=== PATIENT | male | born 1975 | race Caucasian/White ===

== ENCOUNTER 2017-09-27 06:32 | Day surgery (SDC) | payer OTHER ==
[~2017-09-27] VITALS: Ht 185.4 cm; Wt 117.0 kg
[~2017-09-27 06:32] MED LIST: AMOX500 PO; AMOX50SU PO; ASPI325 PO; ATOR40TA PO; CLOP75; CODACEE120 PO; CYCL10 PO; FAMO40 PO; GABA300 PO; HYDACE5 PO; IBUP800 PO; LANS15EC PO; LANS30EC PO; METO50ER PO; Nitrostat0.4 MG SL; Norco 5-325 Ta1 EACH PO; Omeprazole20 M1 PO; Percocet 7.5-31 EACH PO; Ranitidine HCl150 M1 PO; SILSUL1TC TOP; Ultram50 MG PO; Zantac150 MG PO
== END 2017-09-27 10:50 | disposition home or self-care (01) ==
LOC: MHTC 06:32
PROC: 4A023N7 Measurement of Cardiac Sampling and Pressure, Left Heart, Percutaneous Approach (ICD-10-PCS; principal; 2017-09-27)
PROC: B211YZZ Fluoroscopy of Multiple Coronary Arteries using Other Contrast (ICD-10-PCS; principal; 2017-09-27)
DX: R07.9 Chest pain, unspecified (principal); R94.39 Abnormal result of other cardiovascular function study; E78.5 Hyperlipidemia, unspecified; E66.01 Morbid (severe) obesity due to excess calories
CPT/HCPCS: 93458; 99152; C1769; C1894; J0690; J1644; J2250; J3010; J7030; Q9967

== ENCOUNTER → 2018-07-13 | Outpatient (CLI) | payer OTHER | END | disposition home or self-care (01) | LOC: LAB SHORT 17:34 → LAB EV 17:34 | DX: E11.42 Type 2 diabetes mellitus with diabetic polyneuropathy (principal); R39.15 Urgency of urination | CPT/HCPCS: 82043; 87086 ==

== ENCOUNTER → 2018-10-02 | Outpatient (CLI) | payer OTHER | END | disposition home or self-care (01) | LOC: LAB SHORT 16:19 → LAB EV 16:19 | DX: B99.9 Unspecified infectious disease (principal) | CPT/HCPCS: 87070; 87205 ==

== ENCOUNTER → 2019-08-24 | Outpatient (CLI) | payer OTHER ==
[2019-08-24 15:12] LABS: BASOPHILS ABSOLUTE AUTO 0.07 K/mm3 (0.00-0.23); BASOPHILS PERCENT AUTO 1 % (0-2); EOSINOPHILS ABSOLUTE AUTO 0.13 K/mm3 (0.00-0.68); EOSINOPHILS PERCENT AUTO 2 % (0-6); Hematocrit 46.7 % (37.0-53.0); Hemoglobin 17.4 g/dL (13.5-17.5); IMMATURE GRAN ABSOLUTE AUTO 0.07 K/mm3 (0.00-0.10); IMMATURE GRAN PERCENT AUTO 1 % (0-1); LYMPHOCYTES ABSOLUTE AUTO 2.32 K/mm3 (0.84-5.20); LYMPHOCYTES PERCENT AUTO 31 % (21-46); MONOCYTES ABSOLUTE AUTO 0.48 K/mm3 (0.16-1.47); MONOCYTES PERCENT AUTO 6 % (4-13); Mean Corpuscular HGB 31.3 pg (26.0-34.0); Mean Corpuscular HGB Conc 37.3 g/dL (31.5-36.5); Mean Corpuscular Volume 84 fL (80-100); Mean Platelet Volume 10.3 fL (9.1-12.4); NEUTROPHILS ABSOLUTE AUTO 4.53 K/mm3 (1.96-9.15); NEUTROPHILS PERCENT AUTO 60 % (41-73); Platelet Count 231 K/mm3 (150-400); RDW Coefficient Variation 12.6 % (11.7-14.2); RDW Standard Deviation 38.1 fL (35.1-46.3); Red Blood Cell Count 5.56 M/mm3 (4.30-5.90)
[2019-08-24 15:24] LABS: Anion Gap 13 mmol/L (6-16); Blood Urea Nitrogen 14 mg/dL (8-24); Bun/Creatinine Ratio 13.5 (12.0-20.0); CO2, Blood 23 mmol/L (21-32); Calcium, Blood 8.7 mg/dL (8.5-10.1); Chloride, Blood 104 mmol/L (98-108); Creatinine, Blood 1.04 mg/dL (0.60-1.20); Glomerular Filtration Rate >60 (60-); Glucose, Blood 202 mg/dL (70-99); Potassium, Blood 4.1 mmol/L (3.5-5.5); Sodium, Blood 140 mmol/L (136-145); Troponin I <0.017 ng/mL (0.000-0.040)
== END ==
LOC: LAB SHORT 15:06 → LAB EV 15:06
PROVIDERS: Family Medicine
DX: R00.2 Palpitations (principal)
CPT/HCPCS: 80048; 84484; 85025

== ENCOUNTER → 2020-01-08 | Outpatient (CLI) | payer OTHER | LOC: LAB SHORT 13:33 → PLD 13:33 | DX: L82.1 Other seborrheic keratosis (principal) | CPT/HCPCS: 88305 ==

== ENCOUNTER → 2021-01-06 | Outpatient (CLI) | payer OTHER ==
[2021-01-06 15:24] LABS: BASOPHILS ABSOLUTE AUTO 0.05 K/mm3 (0.00-0.23); BASOPHILS PERCENT AUTO 0 % (0-2); EOSINOPHILS ABSOLUTE AUTO 0.01 K/mm3 (0.00-0.68); EOSINOPHILS PERCENT AUTO 0 % (0-6); Hematocrit 47.5 % (37.0-53.0); Hemoglobin 17.5 g/dL (13.5-17.5); IMMATURE GRAN ABSOLUTE AUTO 0.07 K/mm3 (0.00-0.10); IMMATURE GRAN PERCENT AUTO 1 % (0-1); LYMPHOCYTES ABSOLUTE AUTO 1.03 K/mm3 (0.84-5.20); LYMPHOCYTES PERCENT AUTO 9 % (21-46); MONOCYTES ABSOLUTE AUTO 0.74 K/mm3 (0.16-1.47); MONOCYTES PERCENT AUTO 7 % (4-13); Mean Corpuscular HGB 30.9 pg (26.0-34.0); Mean Corpuscular HGB Conc 36.8 g/dL (31.5-36.5); Mean Corpuscular Volume 84 fL (80-100); Mean Platelet Volume 10.1 fL (9.1-12.4); NEUTROPHILS ABSOLUTE AUTO 9.36 K/mm3 (1.96-9.15); NEUTROPHILS PERCENT AUTO 83 % (41-73); Platelet Count 251 K/mm3 (150-400); RDW Coefficient Variation 12.6 % (11.7-14.2); Red Blood Cell Count 5.66 M/mm3 (4.30-5.90); White Blood Cell Count 11.26 K/mm3 (4.00-11.30)
[2021-01-06 16:16] LABS: Albumin, Blood 4.2 g/dL (3.4-5.0); Albumin/Globulin Ratio 1.2 (0.8-1.8); Calcium, Blood 9.2 mg/dL (8.5-10.1); Creatinine, Blood 1.3 mg/dL (0.60-1.20); Globulin, Blood 3.5 g/dL (2.2-4.0); Potassium, Blood 3.9 mmol/L (3.5-5.5); Total Protein, Blood 7.7 g/dL (6.4-8.2)
== END | disposition home or self-care (01) ==
LOC: LAB SHORT 15:11 → LAB 15:11
PROVIDERS: Physician Assistant
DX: R50.9 Fever, unspecified (principal)
CPT/HCPCS: 80053; 83690; 85025

== ENCOUNTER 2023-01-19 16:43 | Emergency (ER) | payer OTHER ==
[~2023-01-19] VITALS: Ht 182.9 cm; Wt 111.1 kg
[~2023-01-19 16:43] MED LIST changes: -ATENOLOL25 MG PO; -GABAPENTIN600 MG PO; -LIPITOR80 MG PO; -Methocarbamol750 MG PO; -OMEP20ER PO; -STEGLATRO15 MG PO
[2023-01-19] MEDS ORDERED: ATENOLOL25 MG PO (17:26)
[2023-01-19] MEDS ORDERED: GABAPENTIN600 MG PO (17:26)
[2023-01-19] MEDS ORDERED: Methocarbamol750 MG PO (17:26)
[2023-01-19] MEDS ORDERED: STEGLATRO15 MG PO (17:27)
[2023-01-19] MEDS ORDERED: LIPITOR80 MG PO (17:27)
[2023-01-19] MEDS ORDERED: OMEP20ER PO (17:27)
[2023-01-19 17:51] LABS: Albumin, Blood 4.4 g/dL (3.4-5.0); Albumin/Globulin Ratio 1.3 (0.8-1.8); Bilirubin, Total 0.9 mg/dL (0.1-1.0); Bun/Creatinine Ratio 15.7 (12.0-20.0); Calcium, Blood 9.1 mg/dL (8.5-10.1); Creatinine, Blood 0.89 mg/dL (0.60-1.20); Globulin, Blood 3.3 g/dL (2.2-4.0); Potassium, Blood 3.7 mmol/L (3.5-5.5); Total Protein, Blood 7.7 g/dL (6.4-8.2)
[2023-01-19 18:26] LABS: BASOPHILS ABSOLUTE AUTO 0.06 K/mm3 (0.00-0.23); BASOPHILS PERCENT AUTO 1 % (0-2); EOSINOPHILS ABSOLUTE AUTO 0.14 K/mm3 (0.00-0.68); EOSINOPHILS PERCENT AUTO 2 % (0-6); Hematocrit 46.4 % (37.0-53.0); Hemoglobin 17.1 g/dL (13.5-17.5); IMMATURE GRAN ABSOLUTE AUTO 0.06 K/mm3 (0.00-0.10); IMMATURE GRAN PERCENT AUTO 1 % (0-1); LYMPHOCYTES ABSOLUTE AUTO 2.21 K/mm3 (0.84-5.20); LYMPHOCYTES PERCENT AUTO 26 % (21-46); MONOCYTES ABSOLUTE AUTO 0.51 K/mm3 (0.16-1.47); MONOCYTES PERCENT AUTO 6 % (4-13); Mean Corpuscular HGB 30.6 pg (26.0-34.0); Mean Corpuscular HGB Conc 36.9 g/dL (31.5-36.5); Mean Corpuscular Volume 83 fL (80-100); Mean Platelet Volume 10.7 fL (9.1-12.4); NEUTROPHILS ABSOLUTE AUTO 5.44 K/mm3 (1.96-9.15); NEUTROPHILS PERCENT AUTO 65 % (41-73); NRBC ABSOLUTE 0.02 K/mm3 (0.00-0.02); NRBC Auto 0.2 /100 WBC (0.0-0.2); Platelet Count 215 K/mm3 (150-400); RDW Coefficient Variation 12.2 % (11.7-14.2); RDW Standard Deviation 36.6 fL (35.1-46.3); Red Blood Cell Count 5.58 M/mm3 (4.30-5.90); White Blood Cell Count 8.42 K/mm3 (4.00-11.30)
[2023-01-19 19:30] VITALS: BP 138/88
== END 2023-01-19 20:19 | disposition home or self-care (01) ==
LOC: ER 16:43
PROVIDERS: Physician Assistant
DX: R07.89 Other chest pain (principal); I50.30 Unspecified diastolic (congestive) heart failure; I45.10 Unspecified right bundle-branch block; F17.220 Nicotine dependence, chewing tobacco, uncomplicated; Z79.899 Other long term (current) drug therapy
CPT/HCPCS: 71046; 80053; 83690; 84484; 85025; 85379; 93005; 93010; 99285-25

== ENCOUNTER → 2023-01-19 | Outpatient (CLI) | payer OTHER ==
[~2023-01-19] MED LIST changes: +ATENOLOL25 MG PO; +GABAPENTIN600 MG PO; +LIPITOR80 MG PO; +Methocarbamol750 MG PO; +OMEP20ER PO; +STEGLATRO15 MG PO
== END | disposition home or self-care (01) ==
LOC: LAB SHORT 15:58 → LAB 15:58
DX: R10.12 Left upper quadrant pain (principal)
CPT/HCPCS: 87086

== ENCOUNTER 2023-03-21 16:46 | Emergency (ER) | payer OTHER ==
[~2023-03-21] VITALS: Ht 182.9 cm; Wt 108.9 kg
[~2023-03-21 16:46] MED LIST changes: +ATENOLOL25 MG PO; +GABAPENTIN600 MG PO; +LIPITOR80 MG PO; +Methocarbamol750 MG PO; +OMEP20ER PO; +STEGLATRO15 MG PO
[2023-03-21 17:35] LABS: BASOPHILS ABSOLUTE AUTO 0.06 K/mm3 (0.00-0.23); BASOPHILS PERCENT AUTO 1 % (0-2); EOSINOPHILS ABSOLUTE AUTO 0.12 K/mm3 (0.00-0.68); EOSINOPHILS PERCENT AUTO 1 % (0-6); Hematocrit 51.8 % (37.0-53.0); Hemoglobin 18.8 g/dL (13.5-17.5); IMMATURE GRAN ABSOLUTE AUTO 0.06 K/mm3 (0.00-0.10); IMMATURE GRAN PERCENT AUTO 1 % (0-1); LYMPHOCYTES ABSOLUTE AUTO 1.89 K/mm3 (0.84-5.20); LYMPHOCYTES PERCENT AUTO 22 % (21-46); MONOCYTES ABSOLUTE AUTO 0.38 K/mm3 (0.16-1.47); MONOCYTES PERCENT AUTO 5 % (4-13); Mean Corpuscular HGB 30.4 pg (26.0-34.0); Mean Corpuscular HGB Conc 36.3 g/dL (31.5-36.5); Mean Corpuscular Volume 84 fL (80-100); Mean Platelet Volume 10.3 fL (9.1-12.4); NEUTROPHILS ABSOLUTE AUTO 5.97 K/mm3 (1.96-9.15); NEUTROPHILS PERCENT AUTO 70 % (41-73); Platelet Count 220 K/mm3 (150-400); RDW Coefficient Variation 12.2 % (11.7-14.2); RDW Standard Deviation 36.9 fL (35.1-46.3); Red Blood Cell Count 6.18 M/mm3 (4.30-5.90); White Blood Cell Count 8.48 K/mm3 (4.00-11.30)
[2023-03-21 17:49] LABS: Source, Urine Clean Catch
[2023-03-21 17:50] LABS: Albumin, Blood 4.2 g/dL (3.4-5.0); Albumin/Globulin Ratio 1.3 (0.8-1.8); Bilirubin, Total 0.7 mg/dL (0.1-1.0); Bun/Creatinine Ratio 14.1 (12.0-20.0); Calcium, Blood 8.9 mg/dL (8.5-10.1); Creatinine, Blood 0.92 mg/dL (0.60-1.20); Globulin, Blood 3.3 g/dL (2.2-4.0); Potassium, Blood 3.8 mmol/L (3.5-5.5); Total Protein, Blood 7.5 g/dL (6.4-8.2)
[2023-03-21 18:07] LABS: Appearance, Urine Clear (Clear); Bilirubin, Urine Neg (Neg); Blood, Urine Neg (Neg); Color, Urine Pale Yellow (P-Yellow); Glucose Qualitative, Urine 4+ (Neg); Ketones, Urine Neg (Neg); Leukocyte Esterase, Urine Neg (Neg); Nitrite, Urine Neg (Neg); Protein, Urine Neg (Neg); Specific Gravity, Urine 1.015 (1.003-1.022); Urobilinogen, Urine NORM (Normal)
[2023-03-21 20:45] VITALS: BP 93/63
[2023-03-21] MEDS ORDERED: Pepcid40 MG PO (21:01)
[2023-03-21] MEDS ORDERED: REGLAN1013 PO (21:01)
== END 2023-03-21 21:12 | disposition home or self-care (01) ==
LOC: ER 16:46
PROVIDERS: Student in an Organized Health Care Education/Training Program
DX: R10.10 Upper abdominal pain, unspecified (principal); Z87.19 Personal history of other diseases of the digestive system; E11.22 Type 2 diabetes mellitus with diabetic chronic kidney disease; N18.2 Chronic kidney disease, stage 2 (mild); I50.30 Unspecified diastolic (congestive) heart failure; F17.220 Nicotine dependence, chewing tobacco, uncomplicated; Z79.899 Other long term (current) drug therapy; Z79.84 Long term (current) use of oral hypoglycemic drugs
CPT/HCPCS: 71046; 74177; 80053; 81003; 83690; 84484; 85025; 93005; 93010; 96374; 96375; 99284-25; J1170; J2270; J2405; J2765; Q9967

== ENCOUNTER 2023-10-07 09:39 | Day surgery (SDC) | payer OTHER ==
[2023-10-07] VITALS (13 sets, daily range): BP systolic 110–139; BP diastolic 65–86
[~2023-10-07] VITALS: Ht 182.9 cm; Wt 106.9 kg
[~2023-10-07 09:39] MED LIST changes: +Lactated Ringer's 1,000 ML IV SCH; +Pepcid40 MG PO; +REGLAN1013 PO
[2023-10-07] MEDS ORDERED: propofoL 0 ML IV ONE (10:40)
--- NOTE | 2023-10-07 10:48 | NUR ---
10/07/23 1048 Yessi Manjarrez HISTORY, CHART, MEDICATIONS AND ALLERGIES REVIEWED BEFORE START OF PROCEDURE. PATIENT CONFIRMS NPO STATUS AND AGREES WITH SCHEDULED PROCEDURE. 3-LEAD EKG REVIEWED WITH PHYSICIAN PRIOR TO START OF PROCEDURE. MONITOR INTACT WITH CONTINUOUS PULSE OXIMETRY,CAPNOGRAPHY, 3-LEAD EKG, INTERMITTENT BP. SUPPLEMENTAL O2 TO BE TITRATED THROUGHOUT PROCEDURE TO MAINTAIN O2 SATURATION ABOVE 90%. PATIENT DETERMINED TO BE ASA APPROPRIATE FOR PROPOFOL SEDATION PRIOR TO START OF PROCEDURE BY . MALLAMPATI CLASS 4 AIRWAY: SOFT PALATE IS NOT VISIBLE.
--- NOTE | 2023-10-07 11:21 | NUR ---
TOLERATING PO FLUIDS WELL. Discharge instructions reviewed with patient. Patient verbalizes understanding. Copy given to patient to take home. Patient States Post-Procedure ride home has been arranged.
--- NOTE | 2023-10-07 11:27 | NUR ---
Patient up to Ambulate independently. Gait steady. Discharged via wheelchair to private car for ride home.
== END 2023-10-07 11:28 | disposition home or self-care (01) ==
LOC: ORSCMMR 09:39 → ORD 10:30 → ORSCMMR 10:30
PROVIDERS: Internal Medicine Gastroenterology
PROC: 0DJD8ZZ Inspection of Lower Intestinal Tract, Via Natural or Artificial Opening Endoscopic (ICD-10-PCS; principal; 2023-10-07 10:30)
DX: Z12.11 Encounter for screening for malignant neoplasm of colon (principal); E11.9 Type 2 diabetes mellitus without complications; G62.9 Polyneuropathy, unspecified; E78.00 Pure hypercholesterolemia, unspecified; K21.9 Gastro-esophageal reflux disease without esophagitis; Z79.899 Other long term (current) drug therapy
CPT/HCPCS: 82947; J2704; J7120

== ENCOUNTER 2024-04-02 19:19 | Emergency (ER) | payer OTHER ==
[~2024-04-02] VITALS: Ht 182.9 cm; Wt 108.9 kg
[~2024-04-02 19:19] MED LIST changes: -Lactated Ringer's 1,000 ML IV SCH
[2024-04-02 19:50] LABS: BASOPHILS ABSOLUTE AUTO 0.06 K/mm3 (0.00-0.23); BASOPHILS PERCENT AUTO 1 % (0-2); EOSINOPHILS ABSOLUTE AUTO 0.11 K/mm3 (0.00-0.68); EOSINOPHILS PERCENT AUTO 2 % (0-6); Hematocrit 48.2 % (37.0-53.0); Hemoglobin 17.8 g/dL (13.5-17.5); IMMATURE GRAN ABSOLUTE AUTO 0.03 K/mm3 (0.00-0.10); IMMATURE GRAN PERCENT AUTO 0 % (0-1); LYMPHOCYTES PERCENT AUTO 35 % (21-46); MONOCYTES ABSOLUTE AUTO 0.45 K/mm3 (0.16-1.47); MONOCYTES PERCENT AUTO 6 % (4-13); Mean Corpuscular HGB 30.6 pg (26.0-34.0); Mean Corpuscular HGB Conc 36.9 g/dL (31.5-36.5); Mean Corpuscular Volume 83 fL (80-100); NEUTROPHILS PERCENT AUTO 57 % (41-73); Platelet Count 246 K/mm3 (150-400); RDW Coefficient Variation 12.7 % (11.7-14.2); RDW Standard Deviation 38.1 fL (35.1-46.3); Red Blood Cell Count 5.81 M/mm3 (4.30-5.90); White Blood Cell Count 7.25 K/mm3 (4.00-11.30)
[2024-04-02] MEDS ORDERED: FentaNYL Citrate 50 MCG/ML 2 ML Injection IV ONE (20:05)
[2024-04-02 20:11] LABS: Alanine Aminotransfer (ALT/SGP 44 U/L (12-78); Albumin, Blood 4.2 g/dL (3.4-5.0); Albumin/Globulin Ratio 1.4 (0.8-1.8); Alk Phos 120 U/L (50-136); Anion Gap 11 mmol/L (3-11); Aspartate Aminotrans (AST/SGOT 31 U/L (12-37); Bilirubin, Total 1.2 mg/dL (0.1-1.0); Blood Urea Nitrogen 14 mg/dL (8-24); Bun/Creatinine Ratio 15.3 (12.0-20.0); CO2, Blood 22 mmol/L (21-32); Calcium, Blood 9.2 mg/dL (8.5-10.1); Chloride, Blood 111 mmol/L (98-108); Creatinine, Blood 0.91 mg/dL (0.60-1.20); Globulin, Blood 3.1 g/dL (2.2-4.0); Glomerular Filtration Rate 104 (60-); Glucose, Blood 250 mg/dL (70-99); Sodium, Blood 140 mmol/L (136-145); Total Protein, Blood 7.3 g/dL (6.4-8.2)
[2024-04-02] MEDS ORDERED: HYDROmorphone HCl/Pf 1MG SYR IV ONE (22:05)
[2024-04-02 22:07] LABS: Triglycerides 125 mg/dL (30-160)
[2024-04-03] MEDS ORDERED: RX Prepack 6 Tabs Oxycodone 5mg UD ONE (00:20)
[2024-04-03] MEDS ORDERED: RX Prepack 2 Tabs Ondansetron ODT 4MG UD ONE (00:20)
[2024-04-03] MEDS ORDERED: ONDA4ODT MM (00:21)
[2024-04-03] MEDS ORDERED: OXAYDO5 M1 PO (00:21)
[2024-04-03 00:30] VITALS: BP 126/78
== END 2024-04-03 00:40 | disposition home or self-care (01) ==
LOC: ER 19:19
PROVIDERS: Student in an Organized Health Care Education/Training Program
DX: K85.90 Acute pancreatitis without necrosis or infection, unspecified (principal); E11.22 Type 2 diabetes mellitus with diabetic chronic kidney disease; N18.2 Chronic kidney disease, stage 2 (mild); F17.220 Nicotine dependence, chewing tobacco, uncomplicated; Z79.899 Other long term (current) drug therapy
CPT/HCPCS: 71045; 76705; 80053; 83690; 84478; 84484; 85025; 93005; 93010; 96374; 96375; 99285-25; A9270; J1171; J3010